=== PATIENT | male | born 1945 | race Caucasian/White ===

== ENCOUNTER → 2016-11-30 | Outpatient (CLI) | payer OTHER ==
[~2016-11-30] MED LIST: ASPIR 8181 MG PO; BYSTOLIC10 MG PO; CARDURA8 MG PO; DOXEPIN 10 MG C10 MG GT; FINASTERIDE5 MG PO; FLOMAX0.4 MG PO; HYDROCHLOROTHIA25 M2 PO; LEVAQUIN 500 M500 MG PO; LIPITOR10 MG PO; NORCO 5-325 TA1 EACH PO; OXYBUTYNIN 5 MG5 M2 PO; TRAMADOL 50 MG50 MG PO
== END ==
LOC: HYPER 06:54
DX: I87.333 Chronic venous hypertension (idiopathic) with ulcer and inflammation of bilateral lower extremity (principal); L97.222 Non-pressure chronic ulcer of left calf with fat layer exposed; L97.822 Non-pressure chronic ulcer of other part of left lower leg with fat layer exposed; L97.812 Non-pressure chronic ulcer of other part of right lower leg with fat layer exposed; E66.01 Morbid (severe) obesity due to excess calories; I87.2 Venous insufficiency (chronic) (peripheral); I10 Essential (primary) hypertension; E78.00 Pure hypercholesterolemia, unspecified; M19.90 Unspecified osteoarthritis, unspecified site; Z85.820 Personal history of malignant melanoma of skin; Z87.891 Personal history of nicotine dependence; Z72.89 Other problems related to lifestyle

== ENCOUNTER → 2016-12-14 | Outpatient (CLI) | payer OTHER | LOC: HYPER 07:16 | DX: I87.333 Chronic venous hypertension (idiopathic) with ulcer and inflammation of bilateral lower extremity (principal); L97.222 Non-pressure chronic ulcer of left calf with fat layer exposed; L97.811 Non-pressure chronic ulcer of other part of right lower leg limited to breakdown of skin; E66.01 Morbid (severe) obesity due to excess calories; E78.00 Pure hypercholesterolemia, unspecified; M17.11 Unilateral primary osteoarthritis, right knee; I87.2 Venous insufficiency (chronic) (peripheral); I10 Essential (primary) hypertension; S80.812D Abrasion, left lower leg, subsequent encounter; X58.XXXD Exposure to other specified factors, subsequent encounter; Z85.820 Personal history of malignant melanoma of skin; Z87.891 Personal history of nicotine dependence; Z72.89 Other problems related to lifestyle ==

== ENCOUNTER → 2017-02-22 | Outpatient (CLI) | payer OTHER | LOC: HYPER 06:55 | DX: I87.333 Chronic venous hypertension (idiopathic) with ulcer and inflammation of bilateral lower extremity (principal); L97.222 Non-pressure chronic ulcer of left calf with fat layer exposed; L97.822 Non-pressure chronic ulcer of other part of left lower leg with fat layer exposed; L97.811 Non-pressure chronic ulcer of other part of right lower leg limited to breakdown of skin; E66.01 Morbid (severe) obesity due to excess calories; E78.00 Pure hypercholesterolemia, unspecified; M19.90 Unspecified osteoarthritis, unspecified site; Z87.891 Personal history of nicotine dependence; Z72.89 Other problems related to lifestyle ==

== ENCOUNTER → 2017-03-15 | Outpatient (CLI) | payer OTHER | LOC: HYPER 07:05 | DX: I87.333 Chronic venous hypertension (idiopathic) with ulcer and inflammation of bilateral lower extremity (principal); L97.821 Non-pressure chronic ulcer of other part of left lower leg limited to breakdown of skin; L97.221 Non-pressure chronic ulcer of left calf limited to breakdown of skin; L97.811 Non-pressure chronic ulcer of other part of right lower leg limited to breakdown of skin; R60.9 Edema, unspecified; E66.01 Morbid (severe) obesity due to excess calories; E78.00 Pure hypercholesterolemia, unspecified; M19.90 Unspecified osteoarthritis, unspecified site; Z87.891 Personal history of nicotine dependence ==

== ENCOUNTER 2018-03-05 15:41 | Emergency (ER) | payer OTHER ==
[~2018-03-05] VITALS: Ht 182.9 cm; Wt 133.8 kg
--- NOTE | ~2018-03-05 | EKG ---
[place] [address] [address] [facility] [place] [address] ELECTROCARDIOGRAM REPORT Name: FAUZIA VAUGHAN Room #: DEP LEORA Davalos#: [id number] Admission: 03/05/18 Attend Phys: Discharge: 03/05/18 Date of : 49 Report #: [id number] THIS REPORT FOR: //name// [facility] ED Test Date: 2018-03-05 Test Time: 15:57:16 Pat Name: FAUZIA VAUGHAN Department: Room: Gender: Metal Molder: Yonatan MUNGUIA : 1945 Requested By: Esteban Barraza Order Number: [id number] MD: Spencer Salmon Measurements Intervals [place] Rate: 65 P: 35 MO: 225 QRS: 61 QRSD: 122 T: 58 QT: 510 QTc: 531 Interpretive Statements Sinus bradycardia Multiform ventricular premature complexes PACs Prolonged MO interval Electronically Signed On 03-06-2018 8:49:13 CDT by Spencer Salmon [email or web address] <ELECTRONICALLY SIGNED> By: Spencer Salmon MD 03/06/18 0849 1557 1557 Spencer Salmon MD /SABINO
[2018-03-05 16:26] LABS: ABSOLUTE NEUTROPHILS 6.9 thou/uL (1.4-8.2); BASOPHILS 0.2 % (0.0-2.0); EOSINOPHILS 3.9 % (0.0-3.0); HEMATOCRIT 43.7 % (42.0-52.0); LYMPHOCYTES 25.3 % (24.0-44.0); MCH 30.6 pg (26.0-34.0); MCHC 34.3 g/dL (28.0-37.0); MCV 89.3 fL (80.0-100.0); MONOCYTES 5.1 % (1.0-8.0); PLATELET COUNT 221 thou/uL (150-400); POLYS 65.5 % (36.0-66.0); RDW 13.5 % (10.5-14.5); WBC 10.5 thou/uL (4.0-11.0)
[2018-03-05 16:34] LABS: ANION GAP 6 mmol/L (7-16); BUN 25 mg/dL (7-18); CALCIUM 9.1 mg/dL (8.5-10.1); CHLORIDE 104 mmol/L (98-107); CO2 29 mmol/L (21-32); CREATININE 1.3 mg/dL (0.7-1.3); GLUCOSE 134 mg/dL (74-106); POTASSIUM 3.8 mmol/L (3.5-5.1); SODIUM 139 mmol/L (136-145)
[2018-03-05 16:43] LABS: ALBUMIN 3.6 g/dL (3.4-5.0); SGOT 23 U/L (15-37); SGPT 26 U/L (30-65); TOTAL PROTEIN 6.9 g/dL (6.4-8.2); TROPONIN-I < 0.04 ng/mL (<0.06)
[2018-03-05] MEDS ORDERED: ANTIVERT25 MG PO (16:59)
[2018-03-05] MEDS ORDERED: CLONIDINE0.1 PO (16:59)
[2018-03-05] MEDS ORDERED: ZOFRAN ODT8 MG PO (16:59)
[2018-03-05] MEDS ORDERED: VESICARE10 M1 PO (17:35)
[2018-03-05] MEDS ORDERED: DOXAZOSIN MESYLA8 MG PO (17:36)
[2018-03-05] MEDS ORDERED: DIOVAN320 MG PO (17:37)
[2018-03-05] MEDS ORDERED: LOSARTAN POTAS100 MG PO (17:38)
[2018-03-05] MEDS ORDERED: SULINDAC 200MG200 M1 PO (17:38)
[2018-03-05 18:12] VITALS: BP 149/74
== END 2018-03-05 18:13 | disposition home or self-care (01) ==
LOC: ER 15:41
PROVIDERS: Emergency Medicine
DX: I10 Essential (primary) hypertension (principal); R00.1 Bradycardia, unspecified; H93.13 Tinnitus, bilateral; H81.10 Benign paroxysmal vertigo, unspecified ear; R11.10 Vomiting, unspecified; E78.00 Pure hypercholesterolemia, unspecified; N40.0 Benign prostatic hyperplasia without lower urinary tract symptoms; Z87.891 Personal history of nicotine dependence

== ENCOUNTER → 2021-12-10 | Outpatient (CLI) | payer OTHER ==
[~2021-12-10] MED LIST changes: +ANTIVERT25 MG PO; +CLONIDINE0.1 PO; +DIOVAN320 MG PO; +DOXAZOSIN MESYLA8 MG PO; +LOSARTAN POTAS100 MG PO; +SULINDAC 200MG200 M1 PO; +VESICARE10 M1 PO; +ZOFRAN ODT8 MG PO
== END ==
LOC: HYPER 08:51
PROVIDERS: ATTEND Emergency Medicine
DX: I87.333 Chronic venous hypertension (idiopathic) with ulcer and inflammation of bilateral lower extremity (principal); L97.822 Non-pressure chronic ulcer of other part of left lower leg with fat layer exposed; L97.222 Non-pressure chronic ulcer of left calf with fat layer exposed; R60.9 Edema, unspecified; E66.01 Morbid (severe) obesity due to excess calories; N40.0 Benign prostatic hyperplasia without lower urinary tract symptoms; E78.00 Pure hypercholesterolemia, unspecified; M19.90 Unspecified osteoarthritis, unspecified site; Z87.891 Personal history of nicotine dependence; Z90.49 Acquired absence of other specified parts of digestive tract; Z68.41 Body mass index [BMI] 40.0-44.9, adult